=== PATIENT | male | born 1980 | race African-American/Black ===

== ENCOUNTER 2016-08-13 07:40 | Emergency (ER) | payer SELFPAY ==
--- NOTE | 2016-08-13 08:54 | ER Document Report ---
ED General - General Chief Complaint: Abscess Stated Complaint: POSSIBLE ABSCESS NEAR GROIN Time Seen by Provider: 08/13/16 08:26 Notes: Patient is a 35-year-old male who presents the ED complaining of an abscess to the area between the anus and the scrotum x2 days. Pt also states that he has had a rash to his groin for a few weeks. He has not had any treatment for the rash. Occ itching. Patient states that he had an abscess in this area about 5 years ago. He was admitted at that time and had an incision and drainage performed as a surgical procedure. The bacteria was not MRSA. No history of MRSA infection. Patient states that he did try to puncture it and was able to get some discharge out of initially was no longer able to get anything out. Patient states that he has felt feverish/chills with intermittent nausea, no vomiting. He does not take any daily medications. No known drug allergies. Pt is a smoker. Denies any URI symptoms, ESTRADA, sore throat, CP, palp, sob, dyspnea, cough, abd pain, v/d, dysuria, urinary retention, hematuria. TRAVEL OUTSIDE OF THE [place] IN LAST 30 DAYS: No - Related Data Allergies/Adverse Reactions: No Known Allergies Allergy (Verified 08/13/16 07:49) Past Medical History - Social History Smoking Status: Current Every Day Smoker Family History: Reviewed & Not Pertinent Patient has suicidal ideation: No Patient has homicidal ideation: No Pulmonary Medical History: Denies: Hx Tuberculosis Neurological Medical History: Denies: Hx Seizures Renal/ Medical History: Denies: Hx Peritoneal Dialysis Past Surgical History: Denies: Hx Pacemaker - Immunizations Hx Diphtheria, Pertussis, Tetanus Vaccination: Yes - unknown Review of Systems - Review of Systems Notes: REVIEW OF SYSTEMS: CONSTITUTIONAL : see hpi EENT: Denies eye, ear, throat, or mouth pain or symptoms. Denies nasal or sinus congestion or discharge. Denies throat, tongue, or mouth swelling or difficulty swallowing. CARDIOVASCULAR: Denies chest pain. Denies palpitations or racing or irregular heart beat. Denies ankle edema. RESPIRATORY: Denies cough, cold, or chest congestion. Denies shortness of breath, difficulty breathing, or wheezing. GASTROINTESTINAL: see hpi GENITOURINARY: Denies difficulty urinating, painful urination, burning, frequency, blood in urine, or discharge. MUSCULOSKELETAL: Denies back or neck pain or stiffness. Denies joint pain or swelling. SKIN: see hpi ALL OTHER SYSTEMS REVIEWED AND NEGATIVE. Dictation was performed using [employer] voice recognition software Physical Exam - Vital signs Vitals: Temp Pulse Resp BP Pulse Ox 98.2 F 105 H 16 97/69 L 97 08/13/16 07:54 08/13/16 07:54 08/13/16 07:54 08/13/16 07:54 08/13/16 07:54 Notes: PHYSICAL EXAMINATION: GENERAL: Well-appearing, well-nourished and in no acute distress. NECK: Normal range of motion, supple without lymphadenopathy LUNGS: Breath sounds clear to auscultation bilaterally and equal. No wheezes rales or rhonchi. HEART: Regular rate and rhythm without murmurs, rubs, gallops. ABDOMEN: Soft, nontender, nondistended abdomen. No guarding, no rebound. No masses appreciated. Normal bowel sounds present. No CVA tenderness bilaterally. : No erythema, inflammation to the penis, scrotum. No ecchymosis. + circumcised and w/o discharge. Non-tender testicles. + swelling and erythema, with scab noted to the posterior shaft of the penis (posterior to scrotum/ anterior to anus). No d/c. + tenderness and induration. No red streaks. No inguinal lymphadenopathy. Musculoskeletal: FROM to passive/active. Strength 5+/5. Extremities: No cyanosis, clubbing, or edema b/l. Peripheral pulses 2+. Capillary refill less than 3 seconds. NEUROLOGICAL: Cranial nerves grossly intact. Normal speech, normal gait. Normal sensory, motor exams PSYCH: Normal mood, normal affect. SKIN: maculopapular mildly erythemic rash to the groin w. occ satellite lesions , no d/c. non-tender. Course - Re-evaluation Re-evalutation: Patient is an afebrile, well-hydrated, 35yo male who presents with an abscess as noted in the PE. Vitals stable. Low suspicion for any sepsis/SIRS based on H&P. Dr. Yamil cornejo'lauren the patient as well. Agreed to perform an I&D, give rocephin, send home with keflex/bactrim DS. Pt declined to f/u for recheck in the ED over the next 1-2 days. Culture is pending. Advised that he will have to f/u with his PCM otherwise. Return to the ED with worsening symptoms. Pt in agreement. 08/13/16 09:48 08/13/16 12:18 Upon discharge, patient became irritable and angry stating that he wants the abscess/infected area cut out entirely. Pt states that he was not going to leave until it was performed, "correctly." He wants to have a surgical procedure performed to remove the infection so that he does not have to f/u and pay for the antibiotics. Pt very irritable. Rosalee Bolivar NET MOBILE DEVELOPER also discussed with the patient, but he refused to listen and requested for yet another provider for him to speak with. Dr. Lobo recommended having the surgeon come down and consult with the patient to make the final decision about possible surgery. Pt in agreement with surgeon consult. 08/13/16 15:13 Dr. Mendez eval'd the patient and performed a wider/deeper I&D with packing. New wound cx obtained. Wound instructions reviewed with the patient. Dr. Mendez recommended Bactrim, pt already has a script so we will cancel the keflex. Recheck with Dr. Mendez in 1 week. Return to the ED with worsening symptoms otherwise. - Vital Signs Vital signs: Temp Pulse Resp BP Pulse Ox 98.4 F 83 20 111/69 99 08/13/16 11:13 08/13/16 15:09 08/13/16 15:09 08/13/16 16:00 08/13/16 16:01 Procedures - Incision and Drainage posterior scrotum/anterior anus Type: Simple Anesthetic type: 1% Lidocaine mL's of anesthetic: 4 Blade size: 11 I&D procedure: Shurclens applied, Sterile dressing applied Incision Method: Incision made by scalpel Amount/type of drainage: 1-2cc of blood, no pustular fluid. Notes: Incision and drainage procedure, risks, benefits reviewed with the patient. Verbal and written consent obtained. Sterile technique utilized. The area was extensively cleansed utilizing shurclens and saline. A 21-gauge needle was utilized to anesthetize the area using 4 mL's of 1% lidocaine without epinephrine. Once adequate anesthesia was provided, a #11 scalpel was utilized to make a 1- 1.25 cm incision at the site of the abscess. scant amount of blood was expressed. No purulence. Wound culture obtained. Hemostats were then utilized to break up any remaining muscular pockets within the abscess. No packing placed Wound dressing and triple antibiotic placed. Minimal blood loss (approximately 1 cc). Patient tolerated procedure well. No complications. 08/13/16 09:52 Discharge - Discharge Clinical Impression: Abscess Condition: Stable Disposition: HOME, SELF-CARE Instructions: Abscess ([facility]), Oral Narcotic Medication ([facility]), Post Incision and Drainage, Trimethoprim-Sulfa ([facility]) Additional Instructions: Do not shower or bathe for 24 hours. May pull out the packing after 24 hours. Perform epsom salt soaks thereafter. Keep skin clean. Recheck with Dr. Mendez in 1 week Establish with a PCM in the meantime. Monitor for any signs of worsening pain, chest pains, shortness of breath, or redness, red streaks, and/or fever. Return to the ED if noticing any of the above symptoms or as needed. Take medications as directed. Prescriptions: Clotrimazole [Athlete's Foot] 60 gm TP BID #60 cream..g. Hydrocodone/Acetaminophen [Jackson 5-325 mg Tablet] 1 tab PO BID PRN #6 tablet PRN Reason: Sulfamethoxazole/Trimethoprim [Bactrim Ds Tablet] 1 each PO BID #20 tablet Forms: Smoking Cessation Education, Return to Work Referrals: SURGERY [Provider Group] - Follow up tomorrow (call general surgery tomorrow for consult.)
[2016-08-13] MEDS ORDERED: LIDOCAINE 1% INJ-PF (10 MG/ML) 30 ML SDV INJ ONE ×2 (09:15→11:01)
[2016-08-13] MEDS ORDERED: OXYCODONE HCL IR 5 MG TABLET PO ONE (09:18)
[2016-08-13] MEDS ORDERED: LORAZEPAM 1 MG TABLET PO ONE (09:26)
[2016-08-13] MEDS ORDERED: CEFTRIAXONE INJ 1000 MG VIAL IM ONE (10:56)
[2016-08-13] MEDS ORDERED: MORPHINE SULFATE 10 MG/ML INJ IV ONE ×3 (13:31→15:29)
[2016-08-13] MEDS ORDERED: MORPHINE SULFATE 10 MG/ML INJ ONE (13:35)
[2016-08-13] MEDS ORDERED: MIDAZOLAM 2 MG/2 ML INJ ONE (13:35)
[2016-08-13] MEDS ORDERED: MIDAZOLAM 2 MG/2 ML INJ IV ONE ×2 (14:56→15:28)
[2016-08-13] MEDS ORDERED: LIDOCAINE 1% INJ-PF (10 MG/ML) 30 ML SDV ONE (15:02)
--- NOTE | 2016-08-13 15:34 | Operative Report ---
Operative Report DATE OF SURGERY: 08/13/16 PREOPERATIVE DIAGNOSIS: Left perineal abscess POSTOPERATIVE DIAGNOSIS: Same OPERATION: Incision, debridement and packing of left perineal abscess SURGEON: RACHEL MENDEZ ANESTHESIA: Local - See below TISSUE REMOVED OR ALTERED: tissue COMPLICATIONS: none ESTIMATED BLOOD LOSS: scant INTRAOPERATIVE FINDINGS: see below PROCEDURE: The patient was seen in the emergency department. He agreed to proceed with a conscious sedation. Patient placed supine position. Surgical plan surgical timeout conducted. Patient was frog-leg. Scrotum was elevated. The base of the left scrotum was a swollen, tender mildly erythematous area with a longitudinally oriented incision previously made by the emergency department staff. The area was prepped draped sterile fashion. Skin was anesthetized with 1% lidocaine without epinephrine. I used the initial incision and extended it cephalad and caudad and removed a small ellipse of skin. I then used hemostats , and index finger to break up loculations. There was no colleen pus. The subcutaneous tissue was very woody. The infection was consistent with MRSA. A culture was sent stain C&S. Wound was irrigated saline and packed open with small piece of gauze. Postop procedure well. Discharge instructions were provided. Patient will follow-up Dr. Mendez in approximately 1-2 weeks.
[2016-08-13 16:17] VITALS: BP 111/69
== END 2016-08-13 16:17 | disposition home or self-care (01) ==
LOC: ER 07:40
PROC: 0H99XZZ Drainage of Perineum Skin, External Approach (ICD-10-PCS; principal; 2016-08-13)
DX: L02.215 Cutaneous abscess of perineum (principal); R68.83 Chills (without fever); R11.0 Nausea; F17.200 Nicotine dependence, unspecified, uncomplicated; R45.4 Irritability and anger
CPT/HCPCS: 10061; 99284; 96372; 96374; 87070; 87205; 87075; 87077; 87186; J2250; J3490; J2270; J0696

== ENCOUNTER → 2016-09-13 | Outpatient (CLI) | payer OTHER ==
--- NOTE | 2016-09-13 09:06 | RADIOLOGY REPORT (SQ) ---
EXAM DESCRIPTION: MRI LUMBAR SPINE WITHOUT COMPLETED DATE/TIME: 09/13/2016 8:50 am REASON FOR STUDY: LOW BACK PAIN M54.5 LOW BACK PAIN COMPARISON: None. TECHNIQUE: Sagittal and Axial imaging includes T1, T2, STIR and gradient echo sequences. Coronal T2/ HASTE imaging. LIMITATIONS: None. FINDINGS: VISUALIZED UPPER ABDOMEN: Limited evaluation. No acute or suspicious findings suggested. SEGMENTATION: There is a small intervertebral disc space between S1 and S2. This puts the most well- developed disc space at L5-S1. ALIGNMENT: Anatomic. VERTEBRAE: Intact. BONE MARROW: Fatty reactive vertebral body endplate changes anteriorly at L4-5 and diffusely at L5-S1 . Benign in hemangioma in the L2 vertebral body DISC SIGNAL: Decreased T2 weighted intervertebral disc signal with mild disc space loss of height at L4-5 and L5-S1 POSTERIOR ELEMENTS: Generally intact. No pars defect evident. HARDWARE: None in the spine. CORD AND CONUS: Normal in size and signal intensity. Conus at the L1-2 level. SOFT TISSUES: No aortic aneurysm seen. No bulky retroperitoneal adenopathy or mass. No paraspinal mas s or fluid. T11-12: Mild bilateral facet hypertrophy. No central or foraminal stenosis. T12-L1: Unremarkable L1-L2: No significant spinal stenosis or exit foraminal stenosis. Mild bilateral facet hypertrophy. L2-L3: No significant spinal stenosis or exit foraminal stenosis. Mild bilateral facet hypertrophy. L3-L4: Minimal posterior disc bulging, mild bilateral facet and ligament hypertrophy. No significant central or foraminal encroachment. L4-L5: Broad diffuse posterior disc bulge with a small central disc protrusion. Mild bilateral facet and ligament hypertrophy. Borderline central canal narrowing. Mild bilateral inferior foraminal na rrowing without exiting L4 nerve root impingement. L5-S1: Broad diffuse disc bulge with a superimposed central protrusion/herniation. This effaces the ventral epidural fat and abuts the ventral thecal sac at the level of the proximal S1 nerve roots wit hout exiting S1 nerve root impingement. Mild bilateral inferior foraminal narrowing without exiting L5 nerve root impingement. SACRUM: Visualized upper sacrum intact. OTHER: No other significant findings. IMPRESSION: Degenerative disc changes at L4-5 and L5-S1 as above TECHNICAL DOCUMENTATION: JOB ID: [id number]- All Rights Reserved
== END ==
LOC: RAD 07:47
DX: M54.5 Low back pain (principal); G89.29 Other chronic pain; M62.830 Muscle spasm of back
CPT/HCPCS: 72148

== ENCOUNTER 2017-07-04 12:13 | Emergency (ER) | payer SELFPAY ==
[2017-07-04 12:20] VITALS: BP 118/78
[2017-07-04] MEDS ORDERED: BENZONATATE 100 MG CAPSULE PO ONE (13:12)
[2017-07-04] MEDS ORDERED: ASPIRIN 81 MG TABLET, CHEWABLE PO ONE (13:12)
--- NOTE | 2017-07-04 13:17 | ER Document Report ---
ED Medical Screen (RME) - General Chief Complaint: Shortness Of Breath Stated Complaint: DIZZINESS Time Seen by Provider: 07/04/17 13:06 Notes: RAPID MEDICAL EVALUATION DISCLOSURE I have seen this patient as part of a Rapid Medical Evaluation and, if applicable, placed any initially appropriate orders. The patient will be seen and fully evaluated, including a full history and physical exam, by a provider ( in Main ED or Fast Track) when a room becomes available. 36-year-old male here with complaints of left-sided chest pain radiating up to the left shoulder down the left arm with shortness of breath dizziness lightheadedness nausea and "dry heaving blood". He has not tried taking anything for the symptoms. The chest pain is worse with rest and, in fact, improves with walking. He states he cannot stop walking because the pain gets worse. Denies prior history of coronary disease PE DVT. 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 EXAM Regular rate and rhythm Clear to auscultation bilaterally TRAVEL OUTSIDE OF THE [place] IN LAST 30 DAYS: No - Related Data Allergies/Adverse Reactions: No Known Allergies Allergy (Verified 08/13/16 07:49) Past Medical History - Social History Chew tobacco use (# tins/day): No Frequency of alcohol use: Heavy Drug Abuse: Marijuana Pulmonary Medical History: Denies: Hx Tuberculosis Neurological Medical History: Denies: Hx Seizures Renal/ Medical History: Denies: Hx Peritoneal Dialysis Past Surgical History: Denies: Hx Pacemaker - Immunizations Hx Diphtheria, Pertussis, Tetanus Vaccination: Yes - unknown Physical Exam - Vital signs Vitals: Temp Pulse Resp BP Pulse Ox 97.7 F 81 22 H 118/78 97 07/04/17 12:18 07/04/17 12:18 07/04/17 12:18 07/04/17 12:18 07/04/17 12:18 Course - Vital Signs Vital signs: Temp Pulse Resp BP Pulse Ox 97.7 F 81 22 H 118/78 97 07/04/17 12:18 07/04/17 12:18 07/04/17 12:18 07/04/17 12:18 07/04/17 12:18
[2017-07-04 13:45] LABS: ABSOLUTE BASOPHILS # (AUTO) 0.1 10^3/uL (0.0-0.2); ABSOLUTE EOSINOPHILS # (AUTO) 0.1 10^3/uL (0.0-0.6); ABSOLUTE LYMPHOCYTES (AUTO) 2.5 10^3/uL (0.5-4.7); ABSOLUTE MONOCYTES (AUTO) 0.7 10^3/uL (0.1-1.4); ABSOLUTE NEUT (AUTO) 6.9 10^3/uL (1.7-8.2); BASOPHILS % (AUTO) 0.8 % (0-2); EOSINOPHILS % (AUTO) 0.7 % (0-6); HEMOGLOBIN 15.8 g/dL (13.5-17.0); LYMPHOCYTES % (AUTO) 24.5 % (13-45); MEAN CORPUSCULAR HEMOGLOBIN 31.6 pg (27.0-33.4); MEAN CORPUSCULAR HGB CONC 35.1 g/dL (32.0-36.0); MEAN CORPUSCULAR VOLUME 90 fl (80-97); MONOCYTES % (AUTO) 6.4 % (3-13); PLATELET COUNT 317 10^3/uL (150-450); RED CELL DISTRIBUTION WIDTH 13.4 % (11.5-14.0); SEGMENTED NEUTROPHILS % (AUTO) 67.6 % (42-78); TOTAL CELLS COUNTED % (AUTO) 100 %; WHITE BLOOD COUNT 10.2 10^3/uL (4.0-10.5)
--- NOTE | 2017-07-04 14:05 | ER Document Report ---
ED General - General Chief Complaint: Shortness Of Breath Stated Complaint: DIZZINESS Time Seen by Provider: 07/04/17 13:06 Notes: The patient is a 36-year-old male, heavy smoker, daily marijuana smoker, daily drinker, presents with multiple complaints. He was feeling some pain over his left upper chest and neck after waking up earlier today is worse when he presses on the chest and moves his left shoulder. He thought it was a hangover. He also had some dry heaving earlier today and noticed a small amount of blood in the vomitus. He also feels like his throat is raspy. He denies fevers, syncope, rectal pain, abdominal pain, leg swelling, recent travel recurrent nausea. TRAVEL OUTSIDE OF THE [place] IN LAST 30 DAYS: No - Related Data Allergies/Adverse Reactions: No Known Allergies Allergy (Verified 08/13/16 07:49) Past Medical History - General Information source: Patient - Social History Smoking Status: Current Every Day Smoker Chew tobacco use (# tins/day): No Frequency of alcohol use: Heavy Drug Abuse: Marijuana Family History: Reviewed & Not Pertinent Patient has suicidal ideation: No Patient has homicidal ideation: No Pulmonary Medical History: Denies: Hx Tuberculosis Neurological Medical History: Denies: Hx Seizures Renal/ Medical History: Denies: Hx Peritoneal Dialysis Past Surgical History: Denies: Hx Pacemaker - Immunizations Hx Diphtheria, Pertussis, Tetanus Vaccination: Yes - unknown Review of Systems - Review of Systems Notes: REVIEW OF SYSTEMS: CONSTITUTIONAL: -fevers, -chills EENT: -eye pain, -difficulty swallowing, -nasal congestion CARDIOVASCULAR: +chest pain, -syncope. RESPIRATORY: -cough, -SOB GASTROINTESTINAL: -abdominal pain, -nausea, +vomiting, -diarrhea GENITOURINARY: -dysuria, -hematuria MUSCULOSKELETAL: -back pain, -neck pain SKIN: -rash or skin lesions. HEMATOLOGIC: -easy bruising or bleeding. LYMPHATIC: -swollen, enlarged glands. NEUROLOGICAL: -altered mental status or loss of consciousness, -headache, - neurologic symptoms PSYCHIATRIC: -anxiety, -depression. ALL OTHER SYSTEMS REVIEWED AND NEGATIVE. Physical Exam - Vital signs Vitals: Temp Pulse Resp BP Pulse Ox 97.7 F 81 22 H 118/78 97 07/04/17 12:18 07/04/17 12:18 07/04/17 12:18 07/04/17 12:18 07/04/17 12:18 - Notes Notes: PHYSICAL EXAMINATION: GENERAL: Well-appearing, well-nourished and in no acute distress. HEAD: Atraumatic, normocephalic. EYES: Pupils equal round and reactive to light, extraocular movements intact, sclera anicteric, conjunctiva are normal. ENT: nares patent, oropharynx clear without exudates. Moist mucous membranes. NECK: Normal range of motion, supple without lymphadenopathy LUNGS: Breath sounds clear to auscultation bilaterally and equal. No wheezes rales or rhonchi. HEART: Regular rate and rhythm without murmurs CHEST WALL: Mild tenderness over left upper chest wall and left lateral neck. ABDOMEN: Soft, nontender, normoactive bowel sounds. No guarding, no rebound. No masses appreciated. RECTAL: (Chaperoned by ESTHER Roldan) Brown stool, non-tender rectum without hemorrhoids EXTREMITIES: Normal range of motion, no pitting or edema. No cyanosis. NEUROLOGICAL: Cranial nerves grossly intact. Normal speech, normal gait. Normal sensory and motor exams. PSYCH: Normal mood, normal affect. SKIN: Warm, Dry, normal turgor, no rashes or lesions noted. Course - Re-evaluation Re-evalutation: Patient appears very well. His chest x-ray does not show any acute abnormalities, EKG does not show any ischemic changes and blood work is unremarkable. He has brown stool and hemoglobin is normal. His HEART score is 1 (1 for risk factors) and he is PERC negative. Symptoms are atypical for aortic dissection. Suspect a component of chest wall and neck strain. Talked to him about trying to cut down on his 3 packs of cigarettes a day, daily marijuana use and daily Veronica use. Pt became very angry when I nicely told him that trying to cut down on his smoking with help him with his correction health. 07/04/17 14:52 Spoke to patient about his discharge and that no immediate life- threatening diseases were found on his workup, which is the purpose of the ER. Instructed him about using OTC Motrin or Naporsyn for his upper chest wall pain , which can be bought at any pharmacy. He became verbally abusive to multiple staff members, including the charger, Talent Coordinator and myself. "I can hardly talk" as he is screaming at the staff members. "Fuck this place. I'll be back and you'll be sorry. I'm going to [facility] because they'll treat me better." Pt was verbally abusive to multiple staff members throughout his ER stay, starting with the electric motor controls assembler on arrival. - Vital Signs Vital signs: Temp Pulse Resp BP Pulse Ox 97.7 F 81 22 H 118/78 97 07/04/17 12:18 07/04/17 12:18 07/04/17 12:18 07/04/17 12:18 07/04/17 12:18 - Laboratory Result Diagrams: 07/04/17 13:32 07/04/17 13:32 Laboratory results interpreted by me: 07/04/17 13:32 Chloride 112 H Carbon Dioxide 19 L Phosphorus 5.1 H Total Protein 6.1 L - Diagnostic Test Radiology reviewed: Image reviewed, Reports reviewed Radiology results interpreted by me: CXR: NAD - EKG Interpretation by Me EKG shows normal: Sinus rhythm, Buhl, Intervals, QRS Complexes, ST-T Waves Rate: Normal Discharge - Discharge Clinical Impression: Chest pain Qualifiers: Chest pain type: unspecified Qualified Code(s): R07.9 - Chest pain, unspecified Condition: Stable Disposition: HOME, SELF-CARE Additional Instructions: CHEST PAIN OF UNCLEAR CAUSE: The exact cause of your chest pain isn't clear. Fortunately, there is no evidence of a dangerous medical condition. Further testing may be required to find the source of the pain. Most often, we find that this pain is coming from the chest wall -- the muscles or rib joints in the chest. But chest pain can come from the lung and lung lining, the esophagus, the heart valves or heart lining, and even the stomach or gallbladder. Rest. Eat lightly until the pain is gone. We may prescribe medicine for pain and inflammation. You should call the physician immediately if the pain radiates to the shoulder, jaw or arms; if you start to run a fever or develop a cough; or if you develop shortness of breath, or other new or alarming symptoms. NORMAL EXAM AND WORKUP: At this time, your examination and workup show no significant abnormality. No significant abnormal physical findings were noted. All laboratory, EKG, and imaging (x-ray, CT scans, ultrasound) studies that were ordered show no significant abnormality. Although your examination and all studies that were ordered showed no significant abnormal finding, there are no examinations and no studies that are 100% accurate. There is always the possibility that some abnormality could exist and not be detected with physical examination or within the limits and capabilities of laboratory and other studies. You should return or follow up as you were instructed on your visit today for further evaluation if your symptoms do not resolve. CHEST WALL PAIN: Your chest pain may be coming from the chest wall. This is often caused by straining the muscles or joints in the chest during physical activity, direct trauma, coughing, or vigorous vomiting. Persons with arthritis are especially prone to this type of pain, due to inflammation of the cartilage joints near the breast bone. Occasionally, no cause can be found. Rest from strenuous physical activity. This kind of chest pain is usually made worse by movement of the chest. Depending on the symptoms, we may prescribe medicine for pain, muscle relaxation, and antiinflammatory effects. If the pain is new, and seems to be due to muscle strain, cold packs can help. Otherwise, apply gentle warmth to the painful area for 15 minutes every hour or two. You should call contact the doctor immediately if things change. Further evaluation is needed if you develop a fever or cough, if the nature of the pain changes, or if you become short of breath. ANGINA EPISODE: Your physician has diagnosed the pain you experienced as an episode of angina. Angina occurs when a portion of the heart muscle temporarily lacks oxygen. It does not cause any permanent heart damage, but serves as a warning. Hospitalization is not necessary now. Evaluation of your cardiac condition , and medical therapy for angina will be necessary. It's important you be sure to keep all appointments and take medication exactly as prescribed. Angina is usually treated with a type of "nitrate" medication. This is available as ointment, pills, or sublingual (under the tongue) tablets. Depending on your clinical situation, other medications may be added to help control angina. These may include beta blockers or calcium blockers. If episodes of angina are occurring with increased frequency, or if chest pain lasts longer than 15 minutes or does not respond to nitroglycerin, you must seek emergency medical care immediately. FOLLOW-UP CARE: If you have been referred to a physician for follow-up care, call the physician s office for an appointment as you were instructed or within the next two days. If you experience worsening or a significant change in your symptoms, notify the physician immediately or return to the Emergency Department at any time for re-evaluation. Forms: Smoking Cessation Education Referrals: [facility] [Outside] - Follow up as needed
[2017-07-04 14:06] LABS: ALANINE AMINOTRANSFERASE 26 U/L (21-72); ALBUMIN 3.7 g/dL (3.5-5.0); ALKALINE PHOSPHATASE 72 U/L (38-126); ANION GAP 12 (5-19); ASPARTATE AMINO TRANSFERASE 19 U/L (17-59); BILIRUBIN,DIRECT 0.2 mg/dL (0.0-0.4); BILIRUBIN,TOTAL 0.2 mg/dL (0.2-1.3); BLOOD UREA NITROGEN 13 mg/dL (7-20); CALCIUM 9.3 mg/dL (8.4-10.2); CARBON DIOXIDE 19 mmol/L (22-30); CHLORIDE 112 mmol/L (98-107); GLUCOSE 96 mg/dL (75-110); LIPASE 114.5 U/L (23-300); PHOSPHORUS 5.1 mg/dL (2.5-4.5); POTASSIUM 3.9 mmol/L (3.6-5.0); TOTAL PROTEIN 6.1 g/dL (6.3-8.2)
--- NOTE | 2017-07-04 14:13 | RADIOLOGY REPORT (SQ) ---
EXAM DESCRIPTION: CHEST 2 VIEWS COMPLETED DATE/TIME: 07/04/2017 1:49 pm REASON FOR STUDY: SOB CP n/v COMPARISON: Chest films 05/26/2009, 07/09/2010, 03/10/2011 EXAM PARAMETERS: NUMBER OF VIEWS: two views TECHNIQUE: Digital Frontal and Lateral radiographic views of the chest acquired. RADIATION DOSE: NA LIMITATIONS: none FINDINGS: LUNGS AND PLEURA: No opacities, masses or pneumothorax. No pleural effusion. MEDIASTINUM AND HILAR STRUCTURES: No masses or contour abnormalities. HEART AND VASCULAR STRUCTURES: Heart normal size. No evidence for failure. BONES: No acute findings. HARDWARE: None in the chest. OTHER: No other significant finding. IMPRESSION: NO ACUTE RADIOGRAPHIC FINDING IN THE CHEST. TECHNICAL DOCUMENTATION: JOB ID: [id number] [employer]- All Rights Reserved Reading location - IP/workstation name: [facility] [email or web address]
--- NOTE | 2017-07-04 23:41 | EKG REPORT ---
SEVERITY:- BORDERLINE ECG - SINUS RHYTHM PROBABLE LEFT ATRIAL ABNORMALITY : Confirmed by: Brian Beck 04-Jul-2017 23:40:43
== END 2017-07-04 14:41 | disposition home or self-care (01) ==
LOC: ER 12:13
DX: R07.9 Chest pain, unspecified (principal); R06.02 Shortness of breath; R42 Dizziness and giddiness; R11.10 Vomiting, unspecified; F17.210 Nicotine dependence, cigarettes, uncomplicated
CPT/HCPCS: 36415; 71046; 80053; 82272; 83690; 83735; 84100; 84484; 85025; 93005; 93010; 99285

== ENCOUNTER → 2019-04-01 | Outpatient (CLI) | payer OTHER ==
[2019-04-01 12:49] LABS: ABSOLUTE EOSINOPHILS # (AUTO) 0.1 10^3/uL (0.0-0.6); ABSOLUTE LYMPHOCYTES (AUTO) 2.5 10^3/uL (0.5-4.7); ABSOLUTE MONOCYTES (AUTO) 0.6 10^3/uL (0.1-1.4); ABSOLUTE NEUT (AUTO) 4.2 10^3/uL (1.7-8.2); BASOPHILS % (AUTO) 0.6 % (0-2); EOSINOPHILS % (AUTO) 1.5 % (0-6); HEMATOCRIT 41.4 % (37.9-51.0); HEMOGLOBIN 14.5 g/dL (13.5-17.0); LYMPHOCYTES % (AUTO) 33.1 % (13-45); MEAN CORPUSCULAR VOLUME 91 fl (80-97); PLATELET COUNT 278 10^3/uL (150-450); RED BLOOD COUNT 4.53 10^6/uL (4.35-5.55); RED CELL DISTRIBUTION WIDTH 13.2 % (11.5-14.0); SEGMENTED NEUTROPHILS % (AUTO) 56.8 % (42-78); TOTAL CELLS COUNTED % (AUTO) 100 %; WHITE BLOOD COUNT 7.5 10^3/uL (4.0-10.5)
[2019-04-01 13:09] LABS: ALBUMIN 3.6 g/dL (3.5-5.0); ALKALINE PHOSPHATASE 73 U/L (38-126); ANION GAP 7 (5-19); ASPARTATE AMINO TRANSFERASE 20 U/L (17-59); BILIRUBIN,TOTAL 0.2 mg/dL (0.2-1.3); BLOOD UREA NITROGEN 17 mg/dL (7-20); CALCIUM 8.9 mg/dL (8.4-10.2); CARBON DIOXIDE 25 mmol/L (22-30); CHLORIDE 105 mmol/L (98-107); GLUCOSE 97 mg/dL (75-110); POTASSIUM 4.3 mmol/L (3.6-5.0); TOTAL PROTEIN 5.7 g/dL (6.3-8.2)
== END ==
LOC: CCC 11:48
DX: R10.13 Epigastric pain (principal)
CPT/HCPCS: 36415; 80053; 85025

== ENCOUNTER 2019-04-07 10:48 | Emergency (ER) | payer SELFPAY ==
--- NOTE | 2019-04-07 11:22 | ER Document Report ---
ED Medical Screen (RME) - General Chief Complaint: Bloody Stools Stated Complaint: BLOODY STOOL Time Seen by Provider: 04/07/19 11:20 [facility]: [facility] [Primary Care Provider] - Follow up as needed Mode of Arrival: Ambulatory Information source: Patient Notes: 38-year-old male presented to ED for complaint of rectal bleeding. Also has n ausea and vomiting with blood since 2:00 this morning he states he has had multiple abscesses one from the perianal abscess and one behind his testicles. He came to the emergency room and had both of those I&D. He states now he has had rectal bleeding for the last 12 hours and he is very afraid. Patient is alert oriented respirations regular nonlabored speaking in full sentences. Will get blood urine and have the patient examined. I have greeted and performed a rapid initial assessment of this patient. A comprehensive ED assessment and evaluation of the patient, analysis of test results and completion of medical decision making process will be conducted by an additional ED providers. TRAVEL OUTSIDE OF THE [place] IN LAST 30 DAYS: No - Related Data Allergies/Adverse Reactions: sertraline [From Zoloft] Adverse Reaction (Verified 04/07/19 11:15) Past Medical History - Past Medical History Cardiac Medical History: Reports: Hx Hypercholesterolemia, Hx Hypertension, Hx Heart Murmur Pulmonary Medical History: Reports: Hx Asthma, Hx Bronchitis, Hx Pneumonia, Hx Tuberculosis Neurological Medical History: Denies: Hx Seizures Renal/ Medical History: Denies: Hx Peritoneal Dialysis GI Medical History: Reports: Hx Gastroesophageal Reflux Disease Musculoskeltal Medical History: Reports Hx Musculoskeletal Deformity, Reports Hx Musculoskeletal Trauma Skin Medical History: Reports Hx Cellulitis Past Surgical History: Reports: Hx Orthopedic Surgery - right wrist, Other - ab scess. Denies: Hx Pacemaker - Immunizations Hx Diphtheria, Pertussis, Tetanus Vaccination: Yes - unknown Physical Exam - Vital signs Vitals: Temp Pulse Resp BP Pulse Ox 98.5 F 81 16 119/70 96 04/07/19 11:02 04/07/19 11:02 04/07/19 11:02 04/07/19 11:02 04/07/19 11:02 Course - Vital Signs Vital signs: Temp Pulse Resp BP Pulse Ox 98.5 F 81 16 119/70 96 04/07/19 11:02 04/07/19 11:02 04/07/19 11:02 04/07/19 11:02 04/07/19 11:02 Doctor's Discharge - Discharge Referrals: [facility] [Primary Care Provider] - Follow up as needed
[2019-04-07] MEDS ORDERED: NORMAL SALINE 1000 ML 1,000 ML IV ONE ×2 (11:24→14:35)
[2019-04-07 12:24] LABS: APPEARANCE,URINE CLEAR; BILIRUBIN,URINE NEGATIVE (NEGATIVE); COLOR,URINE YELLOW; GLUCOSE, URINE NEGATIVE (NEGATIVE); KETONES,URINE NEGATIVE (NEGATIVE); PROTEIN,URINE 30 mg/dL (NEGATIVE); URINE SPECIFIC GRAVITY 1.028
[2019-04-07 13:41] LABS: ABSOLUTE EOSINOPHILS # (AUTO) 0.1 10^3/uL (0.0-0.6); ABSOLUTE LYMPHOCYTES (AUTO) 0.8 10^3/uL (0.5-4.7); ABSOLUTE MONOCYTES (AUTO) 0.4 10^3/uL (0.1-1.4); ABSOLUTE NEUT (AUTO) 5.4 10^3/uL (1.7-8.2); BASOPHILS % (AUTO) 0.7 % (0-2); HEMATOCRIT 40.8 % (37.9-51.0); HEMOGLOBIN 14.2 g/dL (13.5-17.0); LYMPHOCYTES % (AUTO) 11.9 % (13-45); MEAN CORPUSCULAR HEMOGLOBIN 31.8 pg (27.0-33.4); MEAN CORPUSCULAR HGB CONC 34.7 g/dL (32.0-36.0); MEAN CORPUSCULAR VOLUME 92 fl (80-97); MONOCYTES % (AUTO) 6.3 % (3-13); PLATELET COUNT 251 10^3/uL (150-450); RED BLOOD COUNT 4.46 10^6/uL (4.35-5.55); RED CELL DISTRIBUTION WIDTH 13.3 % (11.5-14.0); SEGMENTED NEUTROPHILS % (AUTO) 80.1 % (42-78); TOTAL CELLS COUNTED % (AUTO) 100 %; WHITE BLOOD COUNT 6.7 10^3/uL (4.0-10.5)
[2019-04-07 13:50] LABS: ALBUMIN 4.1 g/dL (3.5-5.0); ALKALINE PHOSPHATASE 73 U/L (38-126); ANION GAP 8 (5-19); ASPARTATE AMINO TRANSFERASE 25 U/L (17-59); BILIRUBIN,DIRECT 0.2 mg/dL (0.0-0.4); BILIRUBIN,TOTAL 1.1 mg/dL (0.2-1.3); BLOOD UREA NITROGEN 26 mg/dL (7-20); CARBON DIOXIDE 26 mmol/L (22-30); CHLORIDE 101 mmol/L (98-107); GLUCOSE 97 mg/dL (75-110); POTASSIUM 4.1 mmol/L (3.6-5.0); TOTAL PROTEIN 6.9 g/dL (6.3-8.2)
[2019-04-07] MEDS ORDERED: MORPHINE SULFATE 10 MG/ML INJ IV ONE ×3 (14:33→20:01)
--- NOTE | 2019-04-07 14:37 | ER Document Report ---
ED GI Bleed / Rectal Pain - General Chief Complaint: Bloody Stools Stated Complaint: BLOODY STOOL Time Seen by Provider: 04/07/19 14:10 Primary Care Provider: [facility] [Primary Care Provider] - Follow up tomorrow Mode of Arrival: Ambulatory Information source: Patient Notes: Patient presents reporting rectal bleeding off and on for the past 6 weeks. Patient states that he has had daily diarrhea stools for the past 5 days with blood in his stools. Patient reports history of perianal abscess that has recurred on multiple occasions. Patient states he had a fever yesterday of 101. Patient does complain of right side abdominal discomfort for the past several weeks. Patient reports nausea vomiting x5 episodes today and diarrhea x10 episodes. TRAVEL OUTSIDE OF THE [place] IN LAST 30 DAYS: No - HPI Patient complains to provider of: Bright red bld from rect. Onset: Other - 6 wks Timing/Duration: Persistent Quality of pain: Achy Pain Level: 4 Emesis description: Bright red blood Rectal bleeding: Blood streaks on stool Rectal foreign body: No Associated symptoms: Back pain, Abdominal pain Exacerbated by: Denies Relieved by: Denies Similar symptoms previously: Yes Recently seen / treated by doctor: No - Related Data Allergies/Adverse Reactions: sertraline [From Zoloft] Adverse Reaction (Verified 04/07/19 11:15) Past Medical History - General Information source: Patient - Social History Smoking Status: Current Every Day Smoker Drug Abuse: Marijuana Occupation: fresh foods technician Family History: Reviewed & Not Pertinent Patient has suicidal ideation: No Patient has homicidal ideation: No Pulmonary Medical History: Reports: Hx Asthma, Hx Bronchitis, Hx Pneumonia, Hx Tuberculosis Neurological Medical History: Denies: Hx Seizures Renal/ Medical History: Denies: Hx Peritoneal Dialysis GI Medical History: Reports: Hx Gastroesophageal Reflux Disease Musculoskeletal Medical History: Reports Hx Musculoskeletal Deformity, Reports Hx Musculoskeletal Trauma Skin Medical History: Reports Hx Cellulitis Past Surgical History: Reports: Hx Orthopedic Surgery - right wrist, Other - abscess. Denies: Hx Pacemaker - Immunizations Hx Diphtheria, Pertussis, Tetanus Vaccination: Yes - unknown Review of Systems - Review of Systems Constitutional: No symptoms reported. denies: Fever EENT: No symptoms reported Cardiovascular: No symptoms reported. denies: Chest pain, Dizziness, Lightheaded Respiratory: No symptoms reported. denies: Cough Gastrointestinal: Abdominal pain, Diarrhea, Nausea, Vomiting, Rectal bleeding Genitourinary: No symptoms reported. denies: Dysuria Male Genitourinary: No symptoms reported Musculoskeletal: Back pain Skin: No symptoms reported Hematologic/Lymphatic: No symptoms reported Neurological/Psychological: No symptoms reported Physical Exam - Vital signs Vitals: Temp Pulse Resp BP Pulse Ox 98.5 F 81 16 119/70 96 04/07/19 11:02 04/07/19 11:02 04/07/19 11:02 04/07/19 11:02 04/07/19 11:02 - General General appearance: Appears well, Alert In distress: None - HEENT Head: Normocephalic, Atraumatic Eyes: Normal Conjunctiva: Normal Nasal: Normal Mouth/Lips: Normal Neck: Normal, Supple. No: Lymphadenopathy - Respiratory Respiratory status: No respiratory distress Chest status: Nontender Breath sounds: Normal. No: Rales, Rhonchi, Stridor, Wheezing Chest palpation: Normal - Cardiovascular Rhythm: Regular Heart sounds: S1 appreciated, S2 appreciated Murmur: No - Abdominal Inspection: Obese Distension: No distension Bowel sounds: Normal Tenderness: Nontender - Right side abdominal tenderness Organomegaly: No organomegaly - Rectal Tenderness: Yes Hemorrhoids: None Prostate: Normal Notes: RN Gopal as standby - Back Back: Tender - Lumbar paraspinal tenderness - Extremities General upper extremity: Normal inspection, Normal strength General lower extremity: Normal inspection, Normal strength - Neurological Neuro grossly intact: Yes Cognition: Normal Alexis Coma Scale Eye Opening: Spontaneous Alexis Coma Scale Verbal: Oriented [place] Coma Scale Motor: Obeys Commands [place] Coma Scale Total: 15 - Psychological Associated symptoms: Normal affect, Normal mood - Skin Skin Temperature: Warm Skin Moisture: Dry Skin Color: Normal Course - Re-evaluation Re-evalutation: 04/07/19 17:05 Patient continues to drink oral contrast and denies any nausea. Patient reports abdominal pain is at a 2/5 level at this time. 04/07/19 19:[address] Charlton, message left with circulating RN as Dr. Charlton was currently involved in a surgical case. 04/07/19 20:[address] scan report. Patient is willing to wait for surgical consultation at this time. 04/07/19 21:16 Patient agitated and is not happy with the length of his stay and is requesting to leave. Patient advised of CT report findings and need for consultation with surgery. Patient states that he prefers just to see his primary doctor tomorrow and will get the records sent over to their office. Patient advised that he may need surgery or admission to further evaluate his symptoms today. Patient declines to stay and is insistent that he is leaving. The patient has decided not to proceed with further recommended testing or treatment to determine the cause of her symptoms. The risk and alternatives to the recommendation were discussed the patient voiced understanding. The patient appears clinically to have the capacity to make this decision. The patient was instructed that they could return to the ER at any time to complete the testing or treatment. Dr. Charlton advised that patient is requesting to leave at this time. Dr. Charlton states that he can only see 1 patient at a time and is currently getting ready to evaluate another patient. Dr. Charlton states he will be happy to see patient if he is willing to wait for him to round. - Vital Signs Vital signs: Temp Pulse Resp BP Pulse Ox 97.5 F 63 18 141/91 H 97 04/07/19 21:18 04/07/19 21:18 04/07/19 21:18 04/07/19 21:18 04/07/19 21:18 - Laboratory Result Diagrams: 04/07/19 13:08 04/07/19 13:08 Laboratory results interpreted by me: 04/07/19 04/07/19 04/07/19 11:47 13:08 13:08 Lymph % (Auto) 11.9 L Seg Neutrophils % 80.1 H Sodium 135.4 L BUN 26 H Urine Protein 30 H Urine Urobilinogen 2.0 H 04/07/19 21:18 Labs- Entire Visit 04/07/19 04/07/19 04/07/19 11:47 12:47 12:47 WBC RBC Hgb Hct MCV MCH MCHC RDW Plt Count Lymph % (Auto) [place] % (Auto) Eos % (Auto) Baso % (Auto) Absolute Neuts (auto) Absolute Lymphs (auto) Absolute Monos (auto) Absolute Eos (auto) Absolute Basos (auto) Seg Neutrophils % Sodium Potassium Chloride Carbon Dioxide Anion Gap BUN Creatinine Est GFR ( Amer) Est GFR (MDRD) Non-Af Glucose Calcium Total Bilirubin Direct Bilirubin Neonat Total Bilirubin Neonat Direct Bilirubin Neonat Indirect Bili AST ALT Alkaline Phosphatase Total Protein Albumin Lipase Urine Color YELLOW Urine Appearance CLEAR Urine pH 6.0 Ur Specific [place] 1.028 Urine Protein 30 H Urine Glucose (UA) NEGATIVE Urine Ketones NEGATIVE Urine Blood NEGATIVE Urine Nitrite (Reflex) NEGATIVE Urine Bilirubin NEGATIVE Urine Urobilinogen 2.0 H Leukocyte Esterase Rfl NEGATIVE Urine RBC (Auto) 1 Urine WBC (Reflex) < 1 Squamous Epi Cells Auto <1 Urine Mucus (Auto) OCC Urine Ascorbic Acid NEGATIVE POC Stool Occult Blood Stool for White Cells NO WBCs SEEN Stl C. Difficile GDH Ag NEGATIVE Stl C.difficile Tox A&B NEGATIVE Blood Type Antibody Screen 04/07/19 04/07/19 04/07/19 13:08 13:08 13:08 WBC 6.7 RBC 4.46 Hgb 14.2 Hct 40.8 MCV 92 MCH 31.8 MCHC 34.7 RDW 13.3 Plt Count 251 Lymph % (Auto) 11.9 L [place] % (Auto) 6.3 Eos % (Auto) 1.0 Baso % (Auto) 0.7 Absolute Neuts (auto) 5.4 Absolute Lymphs (auto) 0.8 Absolute Monos (auto) 0.4 Absolute Eos (auto) 0.1 Absolute Basos (auto) 0.0 Seg Neutrophils % 80.1 H Sodium 135.4 L Potassium 4.1 Chloride 101 Carbon Dioxide 26 Anion Gap 8 BUN 26 H Creatinine 0.76 Est GFR ( Amer) > 60 Est GFR (MDRD) Non-Af > 60 Glucose 97 Calcium 9.0 Total Bilirubin 1.1 Direct Bilirubin 0.2 Neonat Total Bilirubin Not Reportable Neonat Direct Bilirubin Not Reportable Neonat Indirect Bili Not Reportable AST 25 ALT 17 Alkaline Phosphatase 73 Total Protein 6.9 Albumin 4.1 Lipase Urine Color Urine Appearance Urine pH Ur Specific [place] Urine Protein Urine Glucose (UA) Urine Ketones Urine Blood Urine Nitrite (Reflex) Urine Bilirubin Urine Urobilinogen Leukocyte Esterase Rfl Urine RBC (Auto) Urine WBC (Reflex) Squamous Epi Cells Auto Urine Mucus (Auto) Urine Ascorbic Acid POC Stool Occult Blood Stool for White Cells Stl C. Difficile GDH Ag Stl C.difficile Tox A&B Blood Type Cancelled Antibody Screen Cancelled 04/07/19 04/07/19 04/07/19 13:08 13:19 14:44 WBC RBC Hgb Hct MCV MCH MCHC RDW Plt Count Lymph % (Auto) [place] % (Auto) Eos % (Auto) Baso % (Auto) Absolute Neuts (auto) Absolute Lymphs (auto) Absolute Monos (auto) Absolute Eos (auto) Absolute Basos (auto) Seg Neutrophils % Sodium Potassium Chloride Carbon Dioxide Anion Gap BUN Creatinine Est GFR ( Amer) Est GFR (MDRD) Non-Af Glucose Calcium Total Bilirubin Direct Bilirubin Neonat Total Bilirubin Neonat Direct Bilirubin Neonat Indirect Bili AST ALT Alkaline Phosphatase Total Protein Albumin Lipase 101.0 Urine Color Urine Appearance Urine pH Ur Specific [place] Urine Protein Urine Glucose (UA) Urine Ketones Urine Blood Urine Nitrite (Reflex) Urine Bilirubin Urine Urobilinogen Leukocyte Esterase Rfl Urine RBC (Auto) Urine WBC (Reflex) Squamous Epi Cells Auto Urine Mucus (Auto) Urine Ascorbic Acid POC Stool Occult Blood POSITIVE Stool for White Cells Stl C. Difficile GDH Ag Stl C.difficile Tox A&B Blood Type A POSITIVE Antibody Screen NEGATIVE - Diagnostic Test Radiology reviewed: Reports reviewed Discharge - Discharge Clinical Impression: Colonic mass, Rectal bleeding Abdominal pain Qualifiers: Abdominal location: unspecified location Qualified Code(s): R10.9 - Unspecified abdominal pain Disposition: AGAINST MEDICAL ADVICE Additional Instructions: Return immediately if you would like to continue your work-up or would like evaluation by the surgeon. Return immediately for any new or worsening symptoms Your CT scan showed findings worrisome for possible colonic mass. This could be cancerous, this could be potentially life-threatening. Will need to have this further evaluated. Contact your primary doctor tomorrow to discuss your recent ER visit. Follow-up with a general surgeon for further evaluation. You may need a colonoscopy as well. Forms: Return to Work Referrals: [facility] [Primary Care Provider] - Follow up tomorrow
[2019-04-07 15:33] LABS: C DIFFICILE GDH NEGATIVE (NEGATIVE)
--- NOTE | 2019-04-07 18:06 | RADIOLOGY REPORT (SQ) ---
EXAM DESCRIPTION: CT ABD/PELVIS WITH IV ORAL COMPLETED DATE/TIME: 04/07/2019 4:29 pm REASON FOR STUDY: abd pain, rectal bleeding COMPARISON: None. TECHNIQUE: CT scan of the abdomen and pelvis performed using helical scanning technique with dynamic intravenous contrast injection. No oral contrast. Images reviewed with lung, soft tissue, and bone windows. Reconstructed coronal and sagittal MPR images reviewed. Delayed images for evaluation of the urinary system also acquired. All images stored on PACS. All CT scanners at this facility use dose modulation, iterative reconstruction, and/or weight based d osing when appropriate to reduce radiation dose to as low as reasonably achievable (ALARA). [facility]: Dose Right [facility]: CareDose [facility]: Dose Right [facility]: Teradose 4D [facility]: [email or web address] CONTRAST TYPE AND DOSE: contrast/concentration: Isovue 350.00 mg/ml; Total Contrast Delivered: 100.0 ml; Total Saline Delivered: 72.0 ml RENAL FUNCTION: GFR > 60. RADIATION DOSE: CT Rad equipment meets quality standard of care and radiation dose reduction techniq ues were employed. CTDIvol: 14.4 - 17.8 mGy. DLP: 1848 mGy-cm.. LIMITATIONS: None. FINDINGS: LOWER CHEST: No significant findings. No nodules or infiltrates. LIVER: Normal size and contour. Moderate hepatic steatosis. No focal hepatic mass. Hepatic and por rohan veins are patent. SPLEEN: Normal size. No focal lesions. PANCREAS: No masses. No significant calcifications. No adjacent inflammation or peripancreatic fluid collections. Pancreatic duct not dilated. GALLBLADDER: No identified stones by CT criteria. No inflammatory changes to suggest cholecystitis. ADRENAL GLANDS: No significant masses or asymmetry. RIGHT KIDNEY AND URETER: No solid masses. No significant calcifications. No hydronephrosis or hyd roureter. LEFT KIDNEY AND URETER: No solid masses. No significant calcifications. No hydronephrosis or hydr oureter. AORTA AND VESSELS: No aneurysm. No dissection. Renal arteries, SMA, celiac without stenosis. RETROPERITONEUM: No retroperitoneal adenopathy, hemorrhage or masses. BOWEL AND PERITONEAL CAVITY: Possible 2.3 cm circumferential colonic mass in the transverse colon see n on images 34 and 35 of the axial series and image 19 of the coronal series. No evidence of local i nvasion. There is no bowel obstruction. No bowel wall thickening. A few scattered colonic divertic west without evidence of diverticulitis. No significant inflammatory change. APPENDIX: Normal. PELVIS: No mass. No free fluid. Normal bladder. ABDOMINAL WALL: No masses. No hernias. BONES: No significant or acute findings. OTHER: No other significant finding. IMPRESSION: 1. Moderate hepatic steatosis. 2. Possible 2.3 cm mass in the transverse colon versus debris along the colon wall. Correlation with colonoscopy is recommended. 3. Colonic diverticulosis without evidence of diverticulitis. TECHNICAL DOCUMENTATION: JOB ID: [id number] Quality ID # [id number]: Final reports with documentation of one or more dose reduction techniques (e.g., Au tomated exposure control, adjustment of the mA and/or kV according to patient size, use of iterative reconstruction technique) 2010 [employer]- All Rights Reserved Reading location - IP/workstation name: [email or web address]
[2019-04-07] MEDS ORDERED: ONDANSETRON HCL INJ/PF 4 MG/2 ML SDV IV ONE (18:57)
[2019-04-07 21:21] VITALS: BP 141/91
== END 2019-04-07 21:31 | disposition left against medical advice (07) ==
LOC: ER 10:48
DX: K62.5 Hemorrhage of anus and rectum (principal); K62.9 Disease of anus and rectum, unspecified; R10.9 Unspecified abdominal pain; M54.9 Dorsalgia, unspecified; R11.2 Nausea with vomiting, unspecified; R19.7 Diarrhea, unspecified; R10.819 Abdominal tenderness, unspecified site; F17.200 Nicotine dependence, unspecified, uncomplicated; F12.10 Cannabis abuse, uncomplicated; J45.909 Unspecified asthma, uncomplicated; Z87.19 Personal history of other diseases of the digestive system; Z53.29 Procedure and treatment not carried out because of patient's decision for other reasons
CPT/HCPCS: 96376; 99284; 96361; 96374; 96375; 86900; 86901; 36415; 87045; 89055; 87205; 86850; 83690; 85025; 80053; 81001; 87324; 87449; 74177; J2270; J2405; J7030

== ENCOUNTER 2020-03-08 14:56 | Emergency (ER) | payer SELFPAY ==
[2020-03-08 15:09] VITALS: BP 152/109
--- NOTE | 2020-03-08 15:21 | ER Document Report ---
ED Medical Screen (RME) - General Chief Complaint: Abdominal Pain Stated Complaint: ABDOMINAL PAIN Time Seen by Provider: 03/08/20 15:06 Primary Care Provider: [facility] [Primary Care Provider] - Follow up as needed Mode of Arrival: Ambulatory Information source: Patient TRAVEL OUTSIDE OF THE [place] IN LAST 30 DAYS: No - HPI Patient complains to provider of: Leg pain, arm pain, abdominal pain Notes: 03/08/20 15:20 Patient here with multiple complaints. The patient states that he woke up this morning was having some cramping in his left shoulder with some tingling going down his left arm. He also stated he was having some cramping in his left leg and pain in his left leg. He reports that he was having some abdominal cramping and abdominal pain and reports that his stool may have been black in color. He denies heavy alcohol use. He denies blood thinning medications. He denies heavy NSAID or aspirin use. Exam: Nondistressed, nontoxic appearing. Lungs clinical throughout. Heart sounds normal. Mild diffuse abdominal tenderness on limited triage abdominal exam. Equal strength and sensation to the upper and lower extremities. Nonfocal neuro exam. Cranial nerves normal. An initial examination was made on the patient as part of the triage process, and it was determined a more comprehensive evaluation was necessary. Initial orders were placed and patient was transferred to another provider in the ED who assumed care and finished evaluation and plan. - Related Data Allergies/Adverse Reactions: sertraline [From Zoloft] Adverse Reaction (Verified 04/07/19 11:15) Past Medical History - Past Medical History Cardiac Medical History: Reports: Hx Hypercholesterolemia, Hx Hypertension, Hx Heart Murmur Pulmonary Medical History: Reports: Hx Asthma, Hx Bronchitis, Hx Pneumonia, Hx Tuberculosis Neurological Medical History: Denies: Hx Seizures Renal/ Medical History: Denies: Hx Peritoneal Dialysis GI Medical History: Reports: Hx Gastroesophageal Reflux Disease Musculoskeltal Medical History: Reports Hx Musculoskeletal Deformity, Reports Hx Musculoskeletal Trauma Skin Medical History: Reports Hx Cellulitis Past Surgical History: Reports: Hx Orthopedic Surgery - right wrist, Other - abscess. Denies: Hx Pacemaker - Immunizations Hx Diphtheria, Pertussis, Tetanus Vaccination: Yes - unknown Physical Exam - Vital signs Vitals: Temp Pulse Resp BP Pulse Ox 98.3 F 113 H 20 152/109 H 96 03/08/20 15:06 03/08/20 15:06 03/08/20 15:06 03/08/20 15:06 03/08/20 15:06 Course - Vital Signs Vital signs: Temp Pulse Resp BP Pulse Ox 98.3 F 113 H 20 152/109 H 96 03/08/20 15:06 03/08/20 15:06 03/08/20 15:06 03/08/20 15:06 03/08/20 15:06 Doctor's Discharge - Discharge [facility]errals: [facility] [Primary Care Provider] - Follow up as needed
--- NOTE | 2020-03-08 16:34 | RADIOLOGY REPORT (SQ) ---
EXAM DESCRIPTION: CHEST 2 VIEWS IMAGES COMPLETED DATE/TIME: 03/08/2020 4:23 pm REASON FOR STUDY: pain COMPARISON: 10/29/2018 EXAM PARAMETERS: NUMBER OF VIEWS: two views TECHNIQUE: Digital Frontal and Lateral radiographic views of the chest acquired. RADIATION DOSE: NA LIMITATIONS: none FINDINGS: LUNGS AND PLEURA: There is about a 12 mm area of focal opacification in the left lung late rally just above the level of the hilum. This may represent superimposed rib shadows. Cannot exclud e limited opacification in the medial right base. MEDIASTINUM AND HILAR STRUCTURES: No masses or contour abnormalities. HEART AND VASCULAR STRUCTURES: Heart normal size. No evidence for failure. BONES: No acute findings. HARDWARE: None in the chest. OTHER: No other significant finding. IMPRESSION: 1. Cannot exclude a limited right lower lobe pneumonia. 2. Focal opacification in the left lung laterally may represent superimposed rib shadows. Cannot en tirely exclude a pulmonary nodule. TECHNICAL DOCUMENTATION: JOB ID: [id number] 2010 [employer]- All Rights Reserved Reading location - IP/workstation name: [email or web address]
[2020-03-08 16:38] LABS: ABSOLUTE BASOPHILS # (AUTO) 0.1 10^3/uL (0.0-0.2); ABSOLUTE EOSINOPHILS # (AUTO) 0.1 10^3/uL (0.0-0.6); ABSOLUTE LYMPHOCYTES (AUTO) 3.2 10^3/uL (0.5-4.7); ABSOLUTE MONOCYTES (AUTO) 0.8 10^3/uL (0.1-1.4); ABSOLUTE NEUT (AUTO) 9.8 10^3/uL (1.7-8.2); BASOPHILS % (AUTO) 0.5 % (0-2); EOSINOPHILS % (AUTO) 0.9 % (0-6); HEMATOCRIT 43.4 % (37.9-51.0); HEMOGLOBIN 15.1 g/dL (13.5-17.0); LYMPHOCYTES % (AUTO) 22.7 % (13-45); MEAN CORPUSCULAR HEMOGLOBIN 31.7 pg (27.0-33.4); MEAN CORPUSCULAR HGB CONC 34.7 g/dL (32.0-36.0); MEAN CORPUSCULAR VOLUME 91 fl (80-97); MONOCYTES % (AUTO) 5.7 % (3-13); PLATELET COUNT 289 10^3/uL (150-450); RED BLOOD COUNT 4.75 10^6/uL (4.35-5.55); SEGMENTED NEUTROPHILS % (AUTO) 70.2 % (42-78); TOTAL CELLS COUNTED % (AUTO) 100 %; WHITE BLOOD COUNT 13.9 10^3/uL (4.0-10.5)
[2020-03-08 16:56] LABS: ALBUMIN 3.8 g/dL (3.5-5.0); ALKALINE PHOSPHATASE 89 U/L (38-126); ANION GAP 5 (5-19); ASPARTATE AMINO TRANSFERASE 28 U/L (17-59); BILIRUBIN,DIRECT 0.1 mg/dL (0.0-0.4); BILIRUBIN,TOTAL 0.8 mg/dL (0.2-1.3); BLOOD UREA NITROGEN 23 mg/dL (7-20); CALCIUM 8.8 mg/dL (8.4-10.2); CARBON DIOXIDE 24 mmol/L (22-30); CHLORIDE 106 mmol/L (98-107); CREATINE KINASE 149 U/L (55-170); GLUCOSE 99 mg/dL (75-110); TOTAL PROTEIN 6.5 g/dL (6.3-8.2)
--- NOTE | 2020-03-09 00:48 | EKG REPORT ---
SEVERITY:- NORMAL ECG - SINUS RHYTHM : Confirmed by: Brian Beck 09-Mar-2020 00:47:18
== END 2020-03-08 23:54 | disposition left against medical advice (07) ==
LOC: ER 14:56
DX: R10.9 Unspecified abdominal pain (principal); R20.2 Paresthesia of skin; E78.00 Pure hypercholesterolemia, unspecified; I10 Essential (primary) hypertension
CPT/HCPCS: 36415; 71046; 80053; 82550; 83690; 85025; 93005; 93010; 99281